=== PATIENT | male | born 1970 | race African-American/Black ===

== ENCOUNTER 2016-10-10 13:26 | Emergency (ER) | payer OTHER, BC ==
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
[~2016-10-10 13:26] MED LIST: BACLOFEN10 MG PO; FLEXERIL10 MG PO; HYDROCODON-ACE1 EAC9 PO; MOTRIN600 MG PO; NO MEDICATIONS; VOLTAREN50 MG PO
== END 2016-10-10 14:52 | disposition home or self-care (01) ==
LOC: SED 13:26
DX: S40.012A Contusion of left shoulder, initial encounter (principal); S70.02XA Contusion of left hip, initial encounter; Z88.1 Allergy status to other antibiotic agents; Z88.8 Allergy status to other drugs, medicaments and biological substances; V49.00XA Driver injured in collision with unspecified motor vehicles in nontraffic accident, initial encounter; Y93.89 Activity, other specified; Y92.410 Unspecified street and highway as the place of occurrence of the external cause
CPT/HCPCS: 73030; 73502; 73552; 99284

== ENCOUNTER 2016-12-24 19:19 | Emergency (ER) | payer BC | END 2016-12-24 19:50 | disposition home or self-care (01) | LOC: SED 19:19 | DX: M70.21 Olecranon bursitis, right elbow (principal) | CPT/HCPCS: 99282; 99283 ==